=== PATIENT | male | born 1980 | race Caucasian/White ===

== ENCOUNTER 2016-06-23 13:23 | Emergency (ER) | payer MEDICAID ==
[~2016-06-23] VITALS: Ht 180.3 cm; Wt 70.0 kg
[2016-06-23 14:01] VITALS: Ht 180.3 cm; Wt 70.0 kg
[2016-06-23] MEDS ORDERED: SOD CHLORIDE 0.9% 1,000 ML IV ONE (17:30)
[2016-06-23 18:29] LABS: BASOPHIL # 0.1 10^3/ul (0.0-0.1); BASOPHILS % 0.6 % (0.0-2.0); EOSINOPHILS % 0.2 % (0.0-7.0); HEMATOCRIT 48.5 % (42.0-52.0); HEMOGLOBIN 16.6 g/dl (14.0-18.0); LYMPHOCYTES # 2.3 10^3/ul (0.8-2.9); LYMPHOCYTES % 21.5 % (15.0-51.0); MEAN CORPUSCULAR HEMOGLOBIN 31.1 pg (29.0-33.0); MEAN CORPUSCULAR HGB CONC 34.2 g/dl (32.0-37.0); MEAN PLATELET VOLUME 8.3 fl (7.4-10.4); MONOCYTE # 0.3 10^3/ul (0.3-0.9); MONOCYTES % 2.8 % (0.0-11.0); NEUTROPHILS % 74.9 % (39.0-77.0); PLATELET COUNT 366 10^3/UL (140-440); RED BLOOD COUNT 5.33 10^6/ul (4.70-6.10); UNCORRECTED WBC 10.7 10^3/ul (4.8-10.8); WHITE BLOOD COUNT 10.7 10^3/ul (4.8-10.8)
--- NOTE | 2016-06-23 18:31 | RADRPT ---
PROCEDURE: CT brain without IV contrast. CLINICAL INDICATION: Headache. TECHNIQUE: CT examination of the brain was performed on a 64-slice multidetector scanner. The pat ient was examined without IV contrast. Sagittal and coronal reformatted images were made. The imag es were reviewed on a PACS workstation. Radiation dose: Total CTDIvol: 44 mGY. Total DLP: 720 mGy-cm. COMPARISON: None available. FINDINGS: The ventricles and cerebral sulci are normal in size and morphology. The schafer/white matter differen tiation is well preserved. There is no other abnormal intra-axial high, low density lesion, suggest ing tumor, infarct , bleeding, av malformation or inflammatory mass. No subdural or epidural hematoma. The visualized paranasal sinuses and mastoid air cells are clear . The orbits are unremarkable. The calvarium is intact. No scalp abnormalities are seen. IMPRESSION: 1. Unremarkable CT brain without IV contrast. RPTAT: GG .Gamal Mensah MD, Date Time Electronically viewed and signed by .Gamal Mensah MD, on 06/23/2016 18:31 .Y/
[2016-06-23 18:32] LABS: CONDITION 1
[2016-06-23 19:58] LABS: ALBUMIN 3.9 g/dl (3.3-4.9); POTASSIUM 3.4 mmol/L (3.5-5.1)
[2016-06-23 20:00] LABS: BILIRUBIN,INDIRECT 0.3 mg/dl (0-1.1); BILIRUBIN,TOTAL 0.3 mg/dl (0.2-1.3); CREATININE 0.8 mg/dl (0.61-1.24)
[2016-06-23 20:01] LABS: ALBUMIN/GLOBULIN RATIO 1.3; TOTAL PROTEIN 6.9 g/dl (6.1-8.1)
--- NOTE | 2016-06-24 00:14 | ERD ---
ER Documentation Chief Complaint Date/Time DATE: 06/24/16 TIME: 00:10 Chief Complaint dizziness feeling faint x 1 month HPI 35-year-old male with no significant past medical history presents the ED complaining of dizziness that started 1 month ago. States that he has slight blurred vision earlier today. States that he is tried taking meclizine without any relief of symptoms. States that his dizziness is nonexertional and non- positional. Nuys any weakness, abdominal pain, chest pain, shortness of breath , wheezing. Nuys any fever, chills, cough, rhinorrhea. He does not drink as much water as she should. 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 States that this is chronic. States that the onset of dizziness was intermittently 1 month ago. ROS All systems reviewed and are negative except as per history of present illness. Allergies Allergies: Coded Allergies: No Known Allergy (Unverified , 06/23/16) PMhx/Soc Medical and Surgical Hx: pt denies Medical Hx, pt denies Surgical Hx History of Surgery: No Anesthesia Reaction: No Hx Neurological Disorder: No Hx Respiratory Disorders: No Hx Cardiac Disorders: No Hx Psychiatric Problems: No Hx Miscellaneous Medical Probl: No Hx Alcohol Use: Yes (OCCASIONAL) Hx Substance Use: No Hx Tobacco Use: No Smoking Status: Never smoker Physical Exam Vitals Vital Signs Date Time Temp Pulse Resp B/P Pulse Ox O2 Delivery O2 Flow Rate FiO2 06/23/16 14:01 97.9 116 18 159/75 98 Physical Exam Const: [id number], well-nourished. In no acute distress. Head: Atraumatic, normocephalic Eyes: Normal Conjunctiva without injection. No purulent discharge. PERRLA. EOMI ENT: Normal external ear. Left ear canal without erythema. Left tympanic membrane pearly schafer without effusion or bulging. Ruptured right tympanic membrane with no purulent discharge or serosanguineous fluid. Nasal canal clear with normal turbinates. Moist oropharynx without tonsillar exudates. Non- erythematous pharynx. Uvula midline. No drooling. No trismus. Neck: No cervical midline tenderness. Full range of motion. No meningismus. No cervical lymphadenopathy. No JVD. Resp: Clear to auscultation bilaterally. No wheezing, rhonchi, rales, or crackles. No accessory muscle use. No retractions. Cardio: Regular rate and rhythm. No murmurs, rubs or gallops. Abd: Soft, non tender, non distended. Normal bowel sounds. No palpable masses. No rebound tenderness. No guarding. Negative McBurney's Point. Negative Giang's Sign. Skin: Normal skin turgor. No petechiae or rashes Back: No midline tenderness. No CVA tenderness. Ext: No cyanosis, or edema. Distal pulses intact bilaterally. Neur: Awake and alert. Normal gait. Normal coordination. Cranial Nerves II- VII intact. Normal finger to nose. Muscle strength 5/5. Sensation intact. Psych: Normal Mood and Affect Result Diagram: 06/23/16 1805 06/23/16 1851 Results 24 hrs Laboratory Tests Test 06/23/16 18:05 06/23/16 18:51 Basophils # 0.110^3/ul Basophils % 0.6% Eosinophils # 0.010^3/ul Eosinophils % 0.2% Hematocrit 48.5% Hemoglobin 16.6g/dl Lymphocytes # 2.310^3/ul Lymphocytes % 21.5% Mean Corpuscular Hemoglobin 31.1pg Mean Corpuscular Hemoglobin Concent 34.2g/dl Mean Corpuscular Volume 91.0fl Mean Platelet Volume 8.3fl Monocytes # 0.310^3/ul Monocytes % 2.8% Neutrophils # 8.010^3/ul Neutrophils % 74.9% Nucleated Red Blood Cells # 0.010^3/ul Nucleated Red Blood Cells % 0.0/100WBC Platelet Count 39716^3/UL Red Blood Count 5.3310^6/ul Red Cell Distribution Width 13.0% White Blood Count 10.710^3/ul Alanine Aminotransferase (ALT/SGPT) 60IU/L Albumin 3.9g/dl Albumin/Globulin Ratio 1.30 Alkaline Phosphatase 111IU/L Anion Gap 16 Aspartate Amino Transf (AST/SGOT) 23IU/L Blood Urea Nitrogen 10mg/dl Calcium Level 9.0mg/dl Carbon Dioxide Level 25mmol/L Chloride Level 105mmol/L Creatinine 0.80mg/dl Direct Bilirubin 0.00mg/dl Globulin 3.00g/dl Glucose Level 108mg/dl Indirect Bilirubin 0.3mg/dl Potassium Level 3.4mmol/L Sodium Level 143mmol/L Total Bilirubin 0.3mg/dl Total Protein 6.9g/dl Current Medications Medications (Trade) Dose Ordered Sig/Kayode Route PRN Reason Start Time Stop Time Status Last Admin Dose Admin Sodium Chloride (NS) 1,000 ml @ 1,000 mls/hr Q1H ONCE IV 06/23/16 17:30 06/23/16 18:29 DC 06/23/16 18:18 Procedures/MDM 35-year-old male with no significant past medical history presents the ED complaining of dizziness intermittently for the last month has become constant in the last week. Patient is afebrile and nontoxic-appearing. Patient has normal vital signs. A CT of the brain without contrast, CBC, CMP. Treated the ED with 1 liter of normal saline with improvement of his symptoms. CBC: No leukocytosis. No e/o of systemic infection. No e/o anemia. CMP: No e/o severe acidosis, alkalosis, renal failure, diabetic ketoacidosis, liver disease Lipase within normal limits. Urine: No leukocyte esterase, no nitrites, no hematuria. PROCEDURE: CT brain without IV contrast. CLINICAL INDICATION: Headache. TECHNIQUE: CT examination of the brain was performed on a 64-slice multidetector scanner. The patient was examined without IV contrast. Sagittal and coronal reformatted images were made. The images were reviewed on a PACS workstation. Radiation dose: Total CTDIvol: 44 mGY. Total DLP: 720 mGy-cm. COMPARISON: None available. FINDINGS: The ventricles and cerebral sulci are normal in size and morphology. The schafer/ white matter differentiation is well preserved. There is no other abnormal intra-axial high, low density lesion, suggesting tumor, infarct , bleeding, av malformation or inflammatory mass. No subdural or epidural hematoma. The visualized paranasal sinuses and mastoid air cells are clear. The orbits are unremarkable. The calvarium is intact. No scalp abnormalities are seen. IMPRESSION: 1. Unremarkable CT brain without IV contrast. EKG reviewed and interpreted by Dr. Christensen Rate/Rhythm: [112 bpm, Normal Sinus Rhythm] No ectopy, no ST elevations, normal axis. QRS, ST, T-waves: [No changes consistent w/ acute ischemia] Impression: [No evidence of ischemia or arrhythmia] Low suspicion for acute myocardial infarction, pneumothorax, pneumonia, cardiac tamponade, pulmonary embolism, AAA, aortic dissection, Boerhaave's syndrome, cardiac dysrhythmias,meningitis, intracranial bleed, seizure, stroke, TIA or other emergent conditions. At this time patient's dizziness is caused by unknown origin. Patient's dizziness could likely be due to the ruptured tympanic membrane noted of his right ear. There was no purulent discharge no tenderness to palpation of the tragus or mastoid. Low suspicion for otitis media, otitis externa, low suspicion for hypoglycemia, dehydration, intracranial bleed, subarachnoid hemorrhage, epidural hematoma, subdural hematoma, meningitis, TIA, stroke. Follow up with primary care physician in 1-2 days. Instructed patient to return to the ED sooner for any worsening symptoms. Patient's questions were answered. Patient understood and agreed with discharge plan. Patient discharged stable. Departure Diagnosis: Primary Impression: Dizziness Condition: Stable Patient Instructions: Possible Causes of Dizziness or Fainting, Dizziness, Unk Cause Referrals: [facility] Usted se mckeon hecho un examen mdico de control que le indica que no est en mae condicin que requiera tratamiento urgente en el Departamento de Emergencia. Un estudio ms profundo y el tratamiento de loredo condicin pueden esperar sin ningn riesgo hasta que usted sea atendida/o en el consultorio de loredo mdico o mae cl stephanie. Es responsabilidad suya arreglar mae aldo para el seguimiento del vern. MANEJO DE CONDICIONES NO URGENTES EN EL FUTURO 1) Si usted tiene un mdico de atencin primaria: Usted debera llamar a loredo mdico de atencin primaria antes de venir al departamento de emergencia. Despus de las horas de consultorio, loredo doctor o loredo asociado/a est disponible por telfono. El mdico o enfermero de verito en el servicio telefnico puede asesorarle por lawson medio para atender el problema, o vern contrario se puede programar mae aldo. 2) Si usted no tiene un mdico de atencin primaria: Llame al mdico o clnica de referencia que aparece abajo angelina las horas de consultorio para hacer mae aldo para que le vean. CLINICAS: [facility] [phone] [facility] [phone] [facility] [phone] [place] [address] [phone] [place] [phone] [address] [facility]. [phone] [address] [facility]. [facility] () Usted se mckeon hecho un examen mdico de control que le indica que no est en mae condicin que requiera tratamiento urgente en el Departamento de Emergencia. Un estudio ms profundo y el tratamiento de loredo condicin pueden esperar sin ningn riesgo hasta que usted sea atendida/o en el consultorio de loredo mdico o mae cl stephanie. Es responsabilidad suya arreglar mae aldo para el seguimiento del vern. MANEJO DE CONDICIONES NO URGENTES EN EL FUTURO 1) Si usted tiene un mdico de atencin primaria: Usted debera llamar a loredo mdico de atencin primaria antes de venir al departamento de emergencia. Despus de las horas de consultorio, loredo doctor o loredo asociado/a est disponible por telfono. El mdico o enfermero de verito en el servicio telefnico puede asesorarle por lawson medio para atender el problema, o vern contrario se puede programar mae aldo. 2) Si usted no tiene un mdico de atencin primaria: Llame al mdico o condado institucions de referencia que aparece abajo angelina las horas de consultorio para hacer mae aldo para que le vean. SI USTED NO PUEDE PAGAR PARA STEFFI UN MEDICO puede ir a: [facility] [address] [place] [address] [facility] [address] [place] [address] [facility] [address] [place] [address] [facility] [address] [place] [place], [place] [id number] Additional Instructions: Seguimiento con loredo mdico de aniyara lizaana para remisin al neurlogo y especialista en odos nariz garganta Regrese a estas instalaciones si no se mejora gill esperbamos o gill le dijimos. ILSA BOYER PA-C Jun 24, 2016 00:14
== END 2016-06-23 20:59 | disposition home or self-care (01) ==
LOC: FTE 13:23
DX: R42 Dizziness and giddiness (principal)
CPT/HCPCS: 36415; 70450; 80053; 85025; 93005; J7030; Z7502